=== PATIENT | female | born 1990 | race Caucasian/White ===

== ENCOUNTER → 2017-10-23 | Outpatient (CLI) | payer OTHER ==
[~2017-10-23] MED LIST: ALBU90OI INH; AZIT250 PO; Augmentin 875-1 EACH PO; CEPH500 PO; DOXY100 PO; HYDACE5 PO; IBUP600 PO; MEDR150I IM; METERG.2 PO; NAPR500 PO; OXYACE5T PO; OXYACE7.5T PO; Percocet 5-3251 EACH PO; RXOXYACE PO; SULTRIDS PO; T-3; Ultram50 MG PO
== END | disposition home or self-care (01) ==
LOC: OLS 13:21 → LAB SHORT 13:21
PROVIDERS: Nurse Practitioner Women's Health
DX: Z53.9 Procedure and treatment not carried out, unspecified reason (principal)
CPT/HCPCS: 87624; G0123

== ENCOUNTER → 2018-07-17 | Outpatient (CLI) | payer OTHER ==
[2018-07-22 08:21] LABS: HPV 16 Negative (Negative); HPV 18 Negative (Negative); HPV OTHER HR TYPES Positive (Negative)
== END | disposition home or self-care (01) ==
LOC: LAB 14:19 → LAB SHORT 14:19
PROVIDERS: Nurse Practitioner Family
DX: Z01.419 Encounter for gynecological examination (general) (routine) without abnormal findings (principal)
CPT/HCPCS: 87624; 87625; G0123

== ENCOUNTER → 2020-04-18 | Outpatient (CLI) | payer OTHER | END | disposition home or self-care (01) | LOC: LAB SHORT 20:06 → LAB 20:06 | DX: L03.113 Cellulitis of right upper limb (principal) | CPT/HCPCS: 87070; 87075; 87205 ==

== ENCOUNTER 2020-12-08 15:38 | Emergency (ER) | payer OTHER ==
[~2020-12-08] VITALS: Ht 162.6 cm; Wt 90.7 kg
== END 2020-12-08 20:25 | disposition left against medical advice (07) ==
LOC: ER 15:38
DX: M79.89 Other specified soft tissue disorders (principal); Z53.21 Procedure and treatment not carried out due to patient leaving prior to being seen by health care provider
CPT/HCPCS: 93971; 99282; 99283-25

== ENCOUNTER 2021-09-14 19:13 | Emergency (ER) | payer OTHER ==
[~2021-09-14] VITALS: Ht 162.6 cm; Wt 90.7 kg
[2021-09-14] MEDS ORDERED: CEPH500 PO (19:27)
== END 2021-09-14 19:31 | disposition home or self-care (01) ==
LOC: ER 19:13
DX: L03.116 Cellulitis of left lower limb (principal); Z88.5 Allergy status to narcotic agent
CPT/HCPCS: 99283-25; A9270